=== PATIENT | female | born 1990 | race Caucasian/White ===

== ENCOUNTER → 2017-02-02 | Outpatient (CLI) | payer BC ==
[~2017-02-02] MED LIST: PREDNISONE20 MG PO; PROAIR HFA0.09 MG/AC IH
== END ==
LOC: COL.PUL 02-22 13:00 → COL.RAD 12:09 → COL.PUL 12:09
DX: R31.9 Hematuria, unspecified (principal); M54.9 Dorsalgia, unspecified; R16.2 Hepatomegaly with splenomegaly, not elsewhere classified

== ENCOUNTER 2020-03-27 22:53 | Emergency (ER) | payer BC ==
[~2020-03-27] VITALS: Ht 175.3 cm; Wt 122.7 kg
[~2020-03-27 22:53] MED LIST changes: +IBU600 MG PO; +PERCOCET 325 MG1 TA2 PO; +PRENATAL MVI
[2020-03-27 23:17] VITALS: TEMP 98.3
[2020-03-27] MEDS ORDERED: NORCO 325 MG-51 TAB PO (23:53)
[2020-03-27] MEDS ORDERED: FLEXERIL 1010 MG/TAB PO (23:53)
[2020-03-28] MEDS ORDERED: ZOFRAN ODT4 MG PO (00:24)
[2020-03-28 00:37] VITALS: BP 131/85; PULSE 74
== END 2020-03-28 00:37 | disposition home or self-care (01) ==
LOC: COL.ER 22:53
DX: M62.830 Muscle spasm of back (principal); F17.200 Nicotine dependence, unspecified, uncomplicated; J45.909 Unspecified asthma, uncomplicated; Z79.51 Long term (current) use of inhaled steroids
CPT/HCPCS: J7512

== ENCOUNTER → 2020-08-05 | Outpatient (CLI) | payer BC ==
[~2020-08-05] MED LIST changes: +FLEXERIL 1010 MG/TAB PO; +NORCO 325 MG-51 TAB PO; +ZOFRAN ODT4 MG PO
[2020-08-05 09:52] LABS: BASO # 0.1 (0.0-0.2); BASO % 0.6 % (0.0-2.0); EOS # 0.1 (0.0-0.7); EOS % 1.4 % (0-4.0); GRAN % 62.5 % (42.2-75.2); HEMATOCRIT 41.7 % (37.0-47.0); HEMOGLOBIN 13.8 g/dl (12.5-16.0); LYMPH % 31.6 % (20.0-51.0); MEAN CELL VOLUME 83 fl (80.0-100.0); MEAN CORPUSCULAR HEMOGLOBIN 27 pg (27.0-31.0); MEAN CORPUSCULAR HGB CONC 33 g/dl (33.0-37.0); MEAN PLATELET VOLUME 10.2 fl (7.4-10.4); MONO # 0.4 (0.1-0.6); MONO % 3.6 % (1.7-9.3); PLATELET COUNT 215 K/mm3 (130-400); RED BLOOD COUNT 5.05 M/mm3 (4.10-5.30); REDCELL DISTRIBUTION WIDTH-CV 14.4 % (11.5-14.5)
[2020-08-05 10:10] LABS: BILIRUBIN,TOTAL 0.8 mg/dL (0.0-1.0); C-REACTIVE PROTEIN 3.2 mg/dL (0.0-0.9); CALCIUM 8.8 mg/dL (8.4-10.2); CREATININE, serum 0.87 (0.52-1.25); POTASSIUM 4.3 mmol/L (3.4-5.0); TOTAL PROTEIN 7.3 gm/dL (6.4-8.2)
[2020-08-05 10:16] LABS: ERYTHROCYTE SEDIMENTATION RATE 19 mm/hr (0-20)
== END ==
LOC: COL.LAB 09:13 → COL.RAD 09:17
PROVIDERS: Family Medicine
DX: N83.201 Unspecified ovarian cyst, right side (principal); R16.2 Hepatomegaly with splenomegaly, not elsewhere classified; K76.9 Liver disease, unspecified
CPT/HCPCS: Q9967